=== PATIENT | male | born 2000 | race Caucasian/White ===

== ENCOUNTER → 2022-07-15 | Emergency (ER) | payer OTHER ==
[~2022-07-15] VITALS: Ht 180.3 cm; Wt 88.9 kg
[~2022-07-15] MED LIST: IV NS 0.9% 1,000 ML BAG IV ONE; ONDANSETRON HCL/PF 4 MG/2 ML VIAL IVP ONE; ONDANSETRON HCL/PF 4 MG/2 ML VIAL ONE
--- NOTE | 2022-07-15 05:35 | NUR ---
BIBFRIENDS FOR ETOH. WERE CONCERNED DUE TO PT VOMITING AND BREATHING PATTERN. PT ALERT TO VERBAL STIMULI ANSWERS APPROPRIATELY. PLACED COMFORTABLY IN BED, HOB ELEVATED, VITALS CHECKED.
--- NOTE | 2022-07-15 05:58 | NUR ---
ROD/FRIEND [phone], STATED HE CAN ASSOCIATE [employer] PATIENT FOR TRANSPORT HOME WHEN DISCHARGED
[2022-07-15 06:33] LABS: BASOPHILS % (AUTO) 0.2 % (0.0-2.0); HEMATOCRIT 47 % (39-51); HEMOGLOBIN 15.8 g/dL (13.5-17.5); LYMPHOCYTES # (AUTO) 1.3 K/uL (0.8-4.8); LYMPHOCYTES % (AUTO) 11.9 % (20.0-44.0); MEAN CORPUSCULAR HGB CONC 34 g/dl (31.0-36.0); MEAN CORPUSCULAR VOLUME 86 fL (80-96); MONOCYTES # (AUTO) 0.5 K/uL (0.1-1.30); MONOCYTES % (AUTO) 4.3 % (2.0-12.0); NEUTROPHILS # (AUTO) 9.1 K/uL (1.8-8.9); NEUTROPHILS % (AUTO) 83.6 % (43.0-81.0); PLATELET COUNT (AUTO) 305 K/uL (150-450); RED BLOOD CELL COUNT(AUTO) 5.44 MIL/uL (4.5-6.0); WHITE BLOOD COUNT (AUTO) 10.9 K/uL (4.3-11.0)
[2022-07-15 07:17] LABS: CALCIUM, SERUM 9.8 mg/dL (8.5-10.1); CREATININE 0.9 mg/dL (0.6-1.3); POTASSIUM 3.9 mmol/L (3.5-5.1)
[2022-07-15 07:22] LABS: ALBUMIN 4.5 g/dL (3.4-5.0); BILIRUBIN,TOTAL 0.2 mg/dL (0.2-1.0); TOTAL PROTEIN, SERUM 8.4 g/dL (6.4-8.2)
--- NOTE | 2022-07-15 07:52 | NUR ---
PT IS AWAKE, ALERT AND ORIENTED X4. ADMITS TO DRINKING ALCOHOL BUT STATES" I FEEL MUCH BETTER NOW". PT DENIES SI OR HI.
--- NOTE | 2022-07-15 10:11 | NUR ---
Note undone in ED - 07/15/22 at 1012 by JOHNNY IV removed. Catheter intact and site benign. Pressure and 4x4 applied to site. No bleeding noted.
--- NOTE | 2022-07-15 10:11 | NUR ---
IV removed. Catheter intact and site benign. Pressure and 4x4 applied to site. No bleeding noted.
--- NOTE | 2022-07-15 10:12 | NUR ---
Patient discharged to home in stable condition. Written and verbal after care instructions given. Patient verbalizes understanding of instruction.
[2022-07-15 10:13] VITALS: BP 116/81
== END | disposition home or self-care (01) ==
LOC: ER 06:44
DX: F10.129 Alcohol abuse with intoxication, unspecified (principal); R11.10 Vomiting, unspecified; Y90.6 Blood alcohol level of 120-199 mg/100 ml
CPT/HCPCS: 99284; 96374; 96361; 71045; 85025; 80048; 83690; 80076; 36415; 80320; J2405; J7030; G0480